=== PATIENT | female | born 1970 | race Caucasian/White ===

== ENCOUNTER 2021-03-29 16:17 | Emergency (ER) | payer OTHER, SELFPAY ==
[2021-03-29 16:32] VITALS: BP 176/79; PULSE 75; RESP 20; TEMP 37.1; O2SAT 99
--- NOTE | 2021-03-29 16:38 | ED.WOUNDLAC ---
HPI - Wound/Laceration General Chief Complaint: Wound/Laceration Stated Complaint: Wasp Sting on hand Time Seen by Provider: 03/29/21 16:38 Source: patient Mode of arrival: ambulatory Limitations: no limitations History of Present Illness HPI narrative: Jacqui Keyes is a 50 yo female with a PMH of high cholesterol who comes to [facility] with a wasp sting on the medial dorsum of left hand. It occurred couple hours ago in her hand this was tender and now is swollen. Finger 4 and 5 feels stiff and have some swelling in the proximal digits Related Data Allergies Allergy/AdvReac Type Severity Reaction Status Date / Time No Known Allergies Allergy Verified 03/29/21 16:19 Review of Systems Review of Systems: CONSTITUTIONAL: Denies fever, chills, sweats. EYES: Denies visual changes, redness, discharge. ENT: Denies rhinorrhea, congestion, sore throat, otalgia. CARDIOVASCULAR: Denies chest pain, palpitations, edema. RESPIRATORY: Denies dyspnea, wheezing, cough GASTROINTESTINAL: Denies abdominal pain, nausea, vomiting, diarrhea. GENITOURINARY: Denies dysuria, hematuria, abnormal discharge SKIN: Denies rash or itching. Lasting left dorsum of hand NEUROLOGIC: Denies numbness, or focal weakness. PSYCHIATRIC: Denies anxiety or depression. [facility] Past Medical History Medical History High cholesterol Family History Family History Other No acute medical problems Social History Social History (Updated 03/29/21 @ 16:47 by Katlyn Reynolds CNP) Smoking packs per day: 0.75 Smoking cigarettes per day: 15.0 Smoking status: Current every day smoker Alcohol intake: current Comments At time of signature, I agree with nursing past medical, surgical, social and family history. There is no relevant family history pertinent to the presenting complaint. Exam Narrative: GENERAL: This is a well-nourished, well-developed patient, in mild distress. HEAD: normocephalic, atraumatic. EYES:L. Sclera clear/white. Vision is grossly intact. EARS: External ears normal, . Hearing grossly intact. NOSE: External nose normal without nasal discharge, nares without redness, no rhinorrhea. THROAT: Mucous membranes moist, NECK: Neck supple, non-tender CARDIOVASCULAR: Regular rate and rhythm without murmurs, gallops, or rubs. RESPIRATORY: Clear to auscultation. Breath sounds equal bilaterally. No wheezes, rales, or rhonchi. GASTROINTESTINAL: Abdomen soft, non-tender, SKIN: warm, intact with mild sting to dorsum of left hand swelling medial half of the dorsum with stiffness in the fourth and fifth finger some swelling of the proximal digit not particularly tender . NEURO: awake, alert, and oriented to person, place and time. There were no obvious focal neurologic abnormalities. Steady gait EXTREMITIES: Normal range of motion. BACK: Nontender without deformity Course Course Emergency Course: Patient's stung female is ago at wasp in the left hand Started with Dosepak Benadryl and Pepcid should use ice and hydrocortisone or Benadryl gel locally Vital Signs Vital signs: Vital Signs Temperature 98.7 F 03/29/21 16:32 Pulse Rate 75 03/29/21 16:32 Respiratory Rate 20 03/29/21 16:32 Blood Pressure 176/79 H 03/29/21 16:32 Pulse Oximetry 99 03/29/21 16:32 Temperature 98.7 F 03/29/21 16:32 Pulse Rate 75 03/29/21 16:32 Respiratory Rate 20 03/29/21 16:32 Blood Pressure 176/79 H 03/29/21 16:32 Pulse Oximetry 99 03/29/21 16:32 MDM - Wound/Laceration Differential Diagnosis Differential diagnosis: Likely other (wasp sting vs insect bite vs cellulitis) Critical Care Time Critical Care Time Critical Care Time: No Discharge Plan Discharge Clinical Impression: Accidental wasp sting Patient Disposition: Home, Self-Care Condition: Stable Instructions: Insect Bite or Sting (ED) Additional
== END 2021-03-29 16:54 | disposition home or self-care (01) ==
PROVIDERS: Emergency Provider Nurse Practitioner
DX: T63.461A Toxic effect of venom of wasps, accidental (unintentional), initial encounter (principal); E78.00 Pure hypercholesterolemia, unspecified; F17.210 Nicotine dependence, cigarettes, uncomplicated
CPT/HCPCS: 99203; G0463

== ENCOUNTER 2022-01-24 18:01 | Emergency (ER) | payer OTHER, SELFPAY ==
--- NOTE | 2022-01-24 18:04 | ED.EAR ---
HPI - Ear Problem General Chief complaint: Ear Stated complaint: ear pain Time Seen by Provider: 01/24/22 18:18 Source: patient and RN notes reviewed Mode of arrival: ambulatory Limitations: no limitations History of Present Illness HPI Narrative: 51-year-old female presents with concern for bilateral ear irritation. She reports she has been using Debrox to clean out wax, however they continue to be itchy. She denies drainage. Reports she is beginning to have pain in both ears, particularly pain when she chews. Like she denies fever, bodies, chills, sweats. She denies nasal congestion, rhinorrhea, sore throat, hearing changes. MD Complaint: ear pain Related Data Allergies Allergy/AdvReac Type Severity Reaction Status Date / Time No Known Allergies Allergy Verified 01/24/22 18:06 Review of Systems Review of Systems: CONSTITUTIONAL: Denies malaise, chills, sweats, or fever. EYES: Denies visual changes, redness, or discharge. ENT: Denies rhinorrhea, congestion, sinus pain, and sore throat. Reports bilateral ear itching. CARDIOVASCULAR: Denies chest pain, palpitations, or edema. RESPIRATORY: Denies cough. Denies dyspnea. GASTROINTESTINAL: Denies abdominal pain, nausea, vomiting, diarrhea SKIN: Denies rash or itching. MUSCULOSKELETAL: Denies myalgia. NEUROLOGIC: Denies headache. All systems reviewed & are unremarkable except as noted in HPI and below PMFSH Past Medical History Medical History High cholesterol Family History Family History Other No acute medical problems Social History Social History (Updated 03/29/21 @ 16:47 by Katlyn Reynolds CNP) Smoking packs per day: 0.75 Smoking cigarettes per day: 15.0 Smoking status: Current every day smoker Alcohol intake: current Comments At time of signature, agree with nursing past medical, surgical, social and family history. There is no relevant family history pertinent to the presenting complaint Exam Narrative: GENERAL: Well-appearing, well-nourished, and in no acute distress. HEAD: Normocephalic EYES: PERRLA, conjunctivae clear ENT: Nares clear. Mucous membranes moist. TM not visible due to cerumen or discharge bilaterally; no tragal tenderness. NECK: Supple. No lymphadenopathy CHEST: Clear to auscultation, breath sounds equal. No wheezing, rhonchi, rales, or stridor. No respiratory distress, speaks in full sentences. HEART: Regular rate and rhythm. No murmur heard. SKIN: Warm, dry, no rash. NEURO: Alert and oriented x3. PSYCH: Normal mood and affect Course Course Emergency Course: Patient is aware of diagnosis, understands and agrees to treatment plan. Anticipatory guidance given. Patient agrees to follow-up as directed and is aware of reasons to seek care at the emergency department. Portions of this record may have been created with voice recognition software Level of Care: Express Care Visit Vital Signs Vital signs: Reviewed. Procedures Ear Wax Removal Both Ears: Ear Wax Removal Date: 01/24/22 Ear Wax Removal Time: 18:35 Cerumenolytic Used: other (Hydrogen peroxide and water) Results: Re-examined: cerumen removed completely TM Examination: TM(s) intact, normal appearance Ear Canal Exam: other (Ear canals excoriated bilaterally, erythematous and edematous) Patient Tolerated Procedure: no complications Complications: pain Technique: ear canal irrigated and ear canal curetted Additional Comments: Substance removed from the ear not apparently wax, it was a whitish flaky and mucousy substance Medical Decision Making MDM Narrative Medical decision making narrative: Differential diagnosis considered: Jerome virus, strep pharyngitis, allergic rhinitis, upper respiratory tract infection, sinusitis, rhinosinusitis, nasopharyngitis. viral pharyngitis, otitis media, otitis exte
[2022-01-24 18:08] VITALS: BP 155/89; PULSE 89; RESP 18; TEMP 36.2; O2SAT 99
== END 2022-01-24 18:50 | disposition home or self-care (01) ==
PROVIDERS: Emergency Provider Nurse Practitioner
DX: H60.93 Unspecified otitis externa, bilateral (principal); H92.13 Otorrhea, bilateral; E78.00 Pure hypercholesterolemia, unspecified; F17.210 Nicotine dependence, cigarettes, uncomplicated
CPT/HCPCS: 99213; G0463

== ENCOUNTER 2022-03-26 19:03 | Emergency (ER) | payer OTHER, SELFPAY ==
[2022-03-26 19:12] VITALS: BP 191/112; PULSE 113; RESP 16; TEMP 37.3; O2SAT 99
--- NOTE | 2022-03-26 19:18 | ED.SKABFB ---
HPI - Skin/Abscess/Foreign Bdy General Chief complaint: Wound/Laceration Stated complaint: insect bite Time Seen by Provider: 03/26/22 19:18 Source: patient, RN notes reviewed and old records reviewed Mode of arrival: ambulatory Limitations: no limitations History of Present Illness HPI narrative: 51-year-old female presents to the [facility] after getting stung by a wasp just prior to arrival. Swelling noted left fourth finger. Area where she was stung was PIP lateral fourth finger. No increased warmth. Patient states last time she got stung by a wasp her whole hand swelled up. Denies any trouble breathing. No hives. No facial swelling, no tongue or lip swelling Related Data Allergies Allergy/AdvReac Type Severity Reaction Status Date / Time unknown ear drop Allergy Unknown Unknown Uncoded 03/26/22 19:11 Review of Systems Review of Systems: All systems reviewed & are unremarkable except as noted in HPI and below Constitutional: Constitutional: Reports no additional constitutional complaints, Denies chills and Denies fever(s) Eyes: Eyes: Reports no additional eye complaints ENT: Reports system reviewed and no additional complaints, except as documented Cardiovascular: Cardiovascular: Reports no additional cardiovascular complaints Respiratory: Respiratory: Reports no additional respiratory complaints Gastrointestinal: Gastrointestinal: Reports no additional gastrointestinal complaints Musculoskeletal: Musculoskeletal: Reports no additional musculoskeletal complaints Integumentary/Breasts: Skin/Breast: Reports as per HPI Neurologic: Reports system reviewed and no additional complaints, except as documented Psychiatric: Psychiatric: Reports no additional psychiatric complaints Allergic/Immunologic: Allergic/Immunologic: Reports no additional allergic/immunologic complaints PMFSH Past Medical History Medical History Adenocarcinoma (~2004) Chronic headaches Crohn's colitis High cholesterol Surgical History Surgical History H/O: hysterectomy (~2004) Family History Family History Sibling Asthma Grandparent Hypertension Heart disease Other No acute medical problems Social History Social History Social History: Caffeine-soda/coffee Smoking packs per day: 0.25 Smoking cigarettes per day: 5.0 Smoking status: Current every day smoker Tobacco type: cigarettes Alcohol intake: current Alcohol use details: Beer/wine 3-4 times a year Comments At the time of my signature, I reviewed and agree with the nursing past medical, surgical, social, and family history. There is no relevant family history pertinent to the patient complaint. Exam Const: General: healthy appearing, no acute distress and alert Nutritional Appearance: well nourished Orientation/consciousness: patient oriented x3 Limitations: no limitations HENMT: Head: normal to inspection Ears: external ears normal General nose exam: Normal external nose present and Normal nares present Face and sinus: normal facial exam Mouth: Yes Normal oral and palatal mucosa present, Yes lip normal and Yes moist mucous membranes Throat: posterior oropharynx normal and uvula midline Eyes: General: appearance normal, both eyes and all related structures Pupils: Equal, round and reactive pupils present Neck: Neck: normal visual inspection, no lymphadenopathy and no meningeal signs Chest: Chest palpation & inspection: normal inspection of the chest Resp: Effort & Inspection: normal respiratory effort and no use of accessory muscles Auscultation: clear to auscultation bilaterally, no crackles, no rales, no rhonchi and no wheezes Cardio: Rate: regular rate Rhythm: regular rhythm GI: GI Palp: Yes Soft to palpation and No Ten
[2022-03-26] MEDS: predniSONE 20 MG TABLET 60 MG PO (19:33)
[2022-03-26] MEDS: FAMOTIDINE 20 MG TABLET PO (19:34)
[2022-03-26 19:40] VITALS: BP 165/100
== END 2022-03-26 19:50 | disposition home or self-care (01) ==
PROVIDERS: Emergency Provider Nurse Practitioner
DX: T63.461A Toxic effect of venom of wasps, accidental (unintentional), initial encounter (principal); F17.210 Nicotine dependence, cigarettes, uncomplicated; E78.00 Pure hypercholesterolemia, unspecified; K50.90 Crohn's disease, unspecified, without complications; Z85.9 Personal history of malignant neoplasm, unspecified
CPT/HCPCS: 99213; A9270; G0463; J7512

== ENCOUNTER 2022-09-20 08:55 | Emergency (ER) | payer OTHER, SELFPAY ==
[2022-09-20 09:03] VITALS: PULSE 98; RESP 16; TEMP 36.4; O2SAT 100
[2022-09-20 09:15] VITALS: BP 152/88
--- NOTE | 2022-09-20 09:19 | ED.NAVMDI ---
HPI - Nausea/Vomiting/Diarrhea General Chief complaint: Nausea/Vomiting/Diarrhea Stated complaint: vomiting Time Seen by Provider: 09/20/22 09:22 Source: patient and RN notes reviewed Mode of arrival: ambulatory Limitations: no limitations History of Present Illness HPI Narrative: 52-year-old female presents concern for nausea and vomiting for 4-5 days. She reports mild low back ache that she attributes to being in bed all week. She denies diarrhea, constipation, abdominal pain. Reports slight nasal congestion. Denies sore throat, headache, fever, chills, sweats. She denies urine frequency, urgency, dysuria. Denies flank pain. She reports she is drinking fluids and is able to urinate at least once every 6 hours MD elicited complaint: nausea and vomiting Related Data Home Medications Medication Instructions Recorded Confirmed multivitamin-ferrous 1 tablet PO DAILY 04/29/22 09/20/22 fumarate-folic acid 18 mg-400 mcg tablet (Centrum Complete) omega-3 fatty acids 500 mg capsule 500 mg PO DAILY 04/29/22 09/20/22 Allergies Allergy/AdvReac Type Severity Reaction Status Date / Time unknown ear drop Allergy Unknown Unknown Uncoded 08/29/22 07:58 Review of Systems Review of Systems: CONSTITUTIONAL: Denies malaise, chills, sweats, or fever. ENT: Reports rhinorrhea, congestion. Denies sinus pain, otalgia or sore throat. CARDIOVASCULAR: Denies chest pain, palpitations, or edema. RESPIRATORY: Denies cough or dyspnea. GASTROINTESTINAL: Denies abdominal pain, diarrhea. Reports GENITOURINARY: Denies dysuria or hematuria. MUSCULOSKELETAL: Denies myalgia. Reports low back pain NEUROLOGIC: Denies headache. All systems reviewed & are unremarkable except as noted in HPI and below PMFSH Past Medical History Medical History Adenocarcinoma (~2004) Chronic headaches Crohn's colitis High cholesterol Surgical History Surgical History H/O: hysterectomy (~2004) Family History Family History Sibling Asthma Grandparent Hypertension Heart disease Other No acute medical problems Social History Social History (Updated 08/29/22 @ 08:04 by Seda Moreau [facility]) Social History: Caffeine-soda/coffee Smoking packs per day: 0.25 Smoking cigarettes per day: 5.0 Smoking status: Current every day smoker Tobacco type: cigarettes Alcohol intake: current Alcohol use details: Beer/wine 3-4 times a year Substance use: never Lack of Transportation: No Lack of Food: Never True Current Housing: I Have Housing Concerned About Future Housing: No Difficulty Paying Gas/Electric Bills: No Difficulty Paying for Meds: No Currently Unemployed: No Education: Bachelor's Degree Difficulty w/ Childcare or Family Care: No Comments At time of signature, agree with nursing past medical, surgical, social and family history. There is no relevant family history pertinent to the presenting complaint Exam Narrative: GENERAL: Nontoxic-appearing and in no acute distress. HEAD: Normocephalic, atraumatic. EYES: PERRLA, conjunctivae clear, and EOMI. ENT: Nares clear, turbinates pink, no rhinorrhea or epistaxis. Mucous membranes moist. NECK: Supple. No lymphadenopathy CHEST: Speaks in full sentences. No respiratory distress. HEART: Regular rate and rhythm. ABDOMEN: Soft, flat, nondistended, nontender. No guarding, rebound tenderness, or rigidity. No pulsatile masses. Bowel sounds present in all four quadrants. No organomegaly. Negative Nelson?s sign. No periumbilical tenderness. No Supra public tenderness or distension. No CVA tenderness SKIN: Warm, dry, no rash. NEURO: Alert and oriented x3. PSYCH: Normal mood and affect Course Course Emergency Course: Discussed urinalysis results with patient. That coupled with patient's vomiting and low
== END 2022-09-20 09:57 | disposition home or self-care (01) ==
PROVIDERS: Emergency Provider Nurse Practitioner
DX: R11.2 Nausea with vomiting, unspecified (principal); M54.50 Low back pain, unspecified; F17.210 Nicotine dependence, cigarettes, uncomplicated
CPT/HCPCS: 81003; 99213; G0463

== ENCOUNTER 2024-03-09 10:44 | Outpatient (CLI) | payer OTHER, SELFPAY ==
[2024-03-09 11:54] LABS: Creatinine Urine 155.7 mg/dL
[2024-03-09 11:59] LABS: MALB Creatinine Ratio 10.7 mg/g (0-30); Microalbumin Urine Random 16.6 mg/L (0-16.7)
[2024-03-09 12:00] LABS: Alanine Aminotransferase 16 U/L (6-35); Albumin Level 4.6 g/dL (3.5-5.1); Alkaline Phosphatase 81 U/L (38-126); Anion Gap 9 mmol/L (4-12); Aspartate Amino Transferase 26 U/L (14-36); Bilirubin,Total 0.4 mg/dL (0.2-1.3); Blood Urea Nitrogen 16 mg/dL (7-17); Calcium 9.3 mg/dL (8.4-10.2); Carbon Dioxide 27 mmol/L (22-30); Chloride 105 mmol/L (98-107); Cholesterol 252 mg/dL (0-200); Estimated Glomerular Filt Rate > 60; Glucose 108 mg/dL (65-110); HDL Direct 63 mg/dL; Sodium 141 mmol/L (137-145); Triglycerides 111 mg/dL (<150)
[2024-03-09 12:11] LABS: LDL Cholesterol Direct 145 mg/dL
[2024-03-09 12:44] LABS: Hemoglobin A1C 5.7 % (<5.7)
[2024-03-09 12:59] LABS: Hepatitis C Virus Antibody Negative (Negative)
== END 2024-03-09 10:45 | disposition home or self-care (01) ==
LOC: ANHLAB 10:46
PROVIDERS: PCP Family Medicine; Visit Provider Family Medicine
DX: Z13.6 Encounter for screening for cardiovascular disorders (principal); Z13.1 Encounter for screening for diabetes mellitus; Z11.59 Encounter for screening for other viral diseases; I10 Essential (primary) hypertension
CPT/HCPCS: 36415; 80053; 80061; 82043; 83036; 86803

== ENCOUNTER 2024-05-02 13:43 | Emergency (ER) | payer OTHER, SELFPAY ==
--- NOTE | ~2024-05-02 | XR_ITS ---
XR hand RT min 3V DATE: 05/02/2024 14:12 INDICATION: Laceration of second and third digits TECHNIQUE: 4 views COMPARISON: None FINDINGS: There is soft tissue bandage binding the second and third digits distally, limiting evaluat ion of the underlying soft tissues. No radiopaque foreign body is evident. There is amputation of the distal aspect of the left of the third digit. The small distal fracture fr agment is evident. No other fracture or dislocation is detected. IMPRESSION: Distal second and third soft tissue laceration injury with amputation of a small fragment of the distal aspect of the tuft of the distal phalanx of the third digit Reviewed, dictated and finalized at location A. IMPRESSION: Distal second and third soft tissue laceration injury with amputati on of a small fragment of the distal aspect of the tuft of the distal phalanx o f the third digit
[2024-05-02 13:51] VITALS: BP 160/105; PULSE 95; RESP 15; TEMP 36.6; O2SAT 92
--- NOTE | 2024-05-02 14:17 | ED.GENADULT ---
HPI - General Adult General Chief complaint: Extremity Injury, Upper <MAURO Downey Last Filed: 05/02/24 19:34> Stated complaint: laceration <MAURO Downey Last Filed: 05/02/24 19:34> Time Seen by Provider: 05/02/24 14:01 <MAURO Downey Last Filed: 05/02/24 19:34> Source: patient <MAURO Downey Last Filed: 05/02/24 19:34> Mode of arrival: ambulatory <MAURO Downey Last Filed: 05/02/24 19:34> Limitations: no limitations <MAURO Downey Last Filed: 05/02/24 19:34> History of Present Illness HPI narrative: This is a 53-year-old female who presents to the ED for chief complaint of laceration injury to the right hand. Reports she was chopping lettuce today when she accidentally sliced the tip of the right 2nd and 3rd digit. Triage note mentions that bleeding is not controlled upon arrival. Patient states that she completely jump to the end of her fingers off. Denies any further site of injury. <MAURO Downey Last Filed: 05/02/24 19:34> Related Data Home medications: Home Medications Medication Instructions Recorded Confirmed multivitamin-ferrous 1 tablet PO DAILY 04/29/22 03/04/24 fumarate-folic acid 18 mg-400 mcg tablet (Centrum Complete) omega-3 fatty acids 500 mg capsule 500 mg PO DAILY 04/29/22 03/04/24 coQ10 (ubiquinol) 100 mg capsule 100 mg PO DAILY 03/05/23 03/04/24 <MAURO Downey Last Filed: 05/02/24 19:34> Allergies/adverse reactions: Allergies Allergy/AdvReac Type Severity Reaction Status Date / Time unknown ear drop Allergy Unknown Unknown Uncoded 04/06/24 08:32 <MAURO Downey Last Filed: 05/02/24 19:34> Review of Systems Review of Systems: All systems as dictated in HPI <MAURO Downey Last Filed: 05/02/24 19:34> [facility] Past Medical History Medical History: Medical History Adenocarcinoma (~2004) Chronic headaches Crohn's colitis High cholesterol <MAURO Downey Last Filed: 05/02/24 19:34> Surgical History Surgical History: Surgical History H/O: hysterectomy (~2004) <MAURO Downey Last Filed: 05/02/24 19:34> Family History Family History: Family History Sibling Asthma Grandparent Hypertension Heart disease Other No acute medical problems <MAURO Downey Last Filed: 05/02/24 19:34> Social History Social History: Social History Social History: Caffeine-soda/coffee Smoking packs per day: 0.25 Smoking cigarettes per day: 5.0 Smoking status: Former smoker Tobacco type: cigarettes Smoking end date: 04/06/23 Alcohol intake: current Alcohol use details: Beer/wine 3-4 times a year Substance use: never Lack of Transportation: No Lack of Food: Never True Current Housing: I Have Housing Concerned About Future Housing: No Difficulty Paying Gas/Electric Bills: No Difficulty Paying for Meds: No Currently Unemployed: No Education: Bachelor's Degree Difficulty w/ Childcare or Family Care: No <MAURO Downey Last Filed: 05/02/24 19:34> Exam Narrative: GENERAL: Well-appearing, well-nourished, and in no acute distress. HEAD: Normocephalic, atraumatic. EYES: PERRLA and EOMI. ENT: Nares clear, no rhinorrhea or epistaxis. Mucous membranes moist. Oropharynx without tonsillar hypertrophy exudate or other lesions. NECK: Supple. No adenopathy or masses. CHEST: No respiratory distress. Clear to auscultation. No wheezes rales or rhonchi HEART: Regular rate and rhythm. No murmur heard. Normal peripheral pulses. ABDOMEN: Soft, nontender, nondistended, normal active bowel sounds. MSK: Normal range of motion. No edema. SKIN: Complete avulsions to the distal tips of the 2nd and 3rd digits. There is an active bleeding vessel to the distal right index finger. Bleeding is slowed in the distal middle finger. NEURO: Alert and oriented x4. No focal deficits. PSYCH: Normal mood and affect. <Raudel Joseph PA-C - Last Filed: 05/02/24 19:34> Course Course Emergency Course: Discussed the plan of transfer with patient and she is understanding of the need and is agreeable for this transfer. She would like to go private vehicle possible. She verbalizes understanding of the risk of not having this finger evaluated further by Plastic surgery today and ensures that she and family will go straight to [facility] <Raudel Joseph PA-C - Last Filed: 05/02/24 19:34> FIELD MAP TECHNICIAN/PA Physician Supervision This visit was performed by both a physician and an APC. I performed all aspects of the MDM as documented. <Rian Vasquez MD - Last Filed: 05/02/24 18:35> Consultations Consultation #1: Spoke with Dr. Bashir (Plastics/Hand) [facility]. He does recommend to transfer the patient emergently to address the right middle finger distal tuft amputation. <Raudel Joseph PA-C - Last Filed: 05/02/24 19:34> Consultation #2: Was able speak with Dr. Peng ([facility]) who does accept the patient for transfer. <MAURO Downey Last Filed: 05/02/24 19:34> Vital Signs Vital signs: Vital Signs Temperature 98 F 05/02/24 13:51 Pulse Rate 95 05/02/24 13:51 Respiratory Rate 15 05/02/24 13:51 Blood Pressure 160/105 H 05/02/24 13:51 Pulse Oximetry 92 05/02/24 13:51 Oxygen Delivery Room Air 05/02/24 13:51 Temperature 98 F 05/02/24 13:51 Pulse Rate 75 05/02/24 15:53 Respiratory Rate 19 05/02/24 15:53 Blood Pressure 159/93 H 05/02/24 15:53 Pulse Oximetry 97 10/27/24 15:53 Oxygen Delivery Room Air 05/02/24 13:51 <Raudel Joseph PA-C - Last Filed: 05/02/24 19:34> Vital Signs Temperature 98 F 05/02/24 13:51 Pulse Rate 95 05/02/24 13:51 Respiratory Rate 15 05/02/24 13:51 Blood Pressure 160/105 H 05/02/24 13:51 Pulse Oximetry 92 05/02/24 13:51 Oxygen Delivery Room Air 05/02/24 13:51 Temperature 98 F 05/02/24 13:51 Pulse Rate 75 05/02/24 15:53 Respiratory Rate 19 05/02/24 15:53 Blood Pressure 159/93 H 05/02/24 15:53 Pulse Oximetry 97 05/02/24 15:53 Oxygen Delivery Room Air 05/02/24 13:51 <Rian Vasquez MD - Last Filed: 05/02/24 18:35> Procedures Laceration Laceration 1: Date: 05/02/24 <Raudel Joseph PA-C - Last Filed: 05/02/24 19:34> Time: 15:01 <Raudel Joseph PA-C - Last Filed: 05/02/24 19:34> Site: hand (distal tip avulsion with active bleed to R index) <Raudel Joseph PA-C - Last Filed: 05/02/24 19:34> Side (If applicable): right <Raudel Joseph PA-C - Last Filed: 05/02/24 19:34> Description: irregular <Raudel Joseph PA-C - Last Filed: 05/02/24 19:34> Depth: simple, single layer <Raudel Joseph PA-C - Last Filed: 05/02/24 19:34> Local Anesthetic: lidocaine 1% (digital block) <Raudel Joseph PA-C - Last Filed: 05/02/24 19:34> Amount of anesthesia used (mL): 2 (digital block) <Raudel Joseph PA-C - Last Filed: 05/02/24 19:34> Pre-repair: irrigated <Raudel Joseph PA-C Last Filed: 05/02/24 19:34> ====== Skin Level ======: Skin layer closed with: other (chromic gut) <Raudel Joseph PA-C Last Filed: 05/02/24 19:34> Size (cm): 5-0 <Raudel Joseph PA-C - Last Filed: 05/02/24 19:34> Number of sutures: 3 <MAURO Downey Last Filed: 05/02/24 19:34> Technique: simple, interrupted <Raudel Joseph PA-C Last Filed: 05/02/24 19:34> ====== Subcutaneous Layer ======: ====== Muscle Layer ======: ====== Tendon Layer ======: Medical Decision Making MDM Narrative Medical decision making narrative: This is a 53 yo female who presents to the ED for chief complaint of right hand injury occurring just prior to arrival. She accidentally jumped the distal tips right middle and index finger. Vitals show elevated blood pressure but otherwise normal. Exam shows Complete avulsions to the distal tips of the 2nd and 3rd digits. There is an active bleeding vessel to the distal right index finger. Bleeding is slowed in the distal middle finger. R hand XR: IMPRESSION: Distal second and third soft tissue laceration injury with amputation of a small fragment of the distal aspect of the tuft of the distal phalanx of the third digit Able to control the bleeding of the index finger with absorbable sutures. The middle finger bleeding resolved on its own. Dressed the wounds with Surgicel dressing and non adherent past with Kerlix. Discussed the case with Plastic/Hand over at [facility] who felt that the patient needed to be evaluated there today due to the exposed bony amputation of the middle finger tuft. Discussed with [facility] ED who are willing to accept the patient. She will be able to go by private vehicle as was her request. She was given pain medications, Ancef prior to leaving the ED. Her family is with her and will transport her. Transfer in stable condition. <MAURO Downey Last Filed: 05/02/24 19:34> Vital Signs Vital Signs: Vital Signs Temperature 98 F 05/02/24 13:51 Pulse Rate 95 05/02/24 13:51 Respiratory Rate 15 05/02/24 13:51 Blood Pressure 160/105 H 05/02/24 13:51 Pulse Oximetry 92 05/02/24 13:51 Oxygen Delivery Room Air 05/02/24 13:51 Temperature 98 F 05/02/24 13:51 Pulse Rate 75 05/02/24 15:53 Respiratory Rate 19 05/02/24 15:53 Blood Pressure 159/93 H 05/02/24 15:53 Pulse Oximetry 97 05/02/24 15:53 Oxygen Delivery Room Air 05/02/24 13:51 <Raudel Joseph PA-C - Last Filed: 05/02/24 19:34> Vital Signs Temperature 98 F 05/02/24 13:51 Pulse Rate 95 05/02/24 13:51 Respiratory Rate 15 05/02/24 13:51 Blood Pressure 160/105 H 05/02/24 13:51 Pulse Oximetry 92 05/02/24 13:51 Oxygen Delivery Room Air 05/02/24 13:51 Temperature 98 F 05/02/24 13:51 Pulse Rate 75 05/02/24 15:53 Respiratory Rate 19 05/02/24 15:53 Blood Pressure 159/93 H 05/02/24 15:53 Pulse Oximetry 97 05/02/24 15:53 Oxygen Delivery Room Air 05/02/24 13:51 <Rian Vasquez MD - Last Filed: 05/02/24 18:35> Discharge Plan Discharge Clinical Impression: Avulsion of finger Amputation finger Qualifiers: Encounter type: initial encounter Qualified Code(s): S68.119A - Complete traumatic metacarpophalangeal amputation of unspecified finger, initial encounter <Raudel Joseph PA-C - Last Filed: 05/02/24 19:34> Patient Disposition: Acute Care Hospital <MAURO Downey Last Filed: 05/02/24 19:34> Condition: Stable <MAURO Downey Last Filed: 05/02/24 19:34> Instructions: Antibiotic Form <MAURO Downey Last Filed: 05/02/24 19:34> Prescriptions: No Action Centrum Complete 18-400 mg-mcg tablet 1 tablet PO DAILY omega-3 fatty acids 500 mg capsule 500 mg PO DAILY lisinopril 10 mg tablet 10 mg PO DAILY Qty: 30 2RF coQ10 (ubiquinol) 100 mg capsule 100 mg PO DAILY <Raudel Joseph PA-C - Last Filed: 05/02/24 19:34> Follow-up/Referrals: Apollo Nunn, [Primary Care Provider] - <Raudel Joseph PA-C - Last Filed: 05/02/24 19:34>
[2024-05-02] MEDS: ONDANSETRON INJ 4 MG/2 ML VIAL IV PUSH (15:19)
[2024-05-02] MEDS: MORPHINE SULFATE (*CRX) 4 MG/ML INJ IV PUSH (15:20)
[2024-05-02] MEDS: ceFAZolin 1 GM/NS 50 ML 1 GM/50 ML BAG IVPB (15:20)
[2024-05-02 15:31] VITALS: BP 140/91; PULSE 83; RESP 18; O2SAT 95
[2024-05-02 15:53] VITALS: BP 159/93; PULSE 75; RESP 19; O2SAT 97
--- NOTE | 2024-05-02 16:04 | PC.NURSE ---
Pt is being transfer to [facility], offered ambulance. Pt refused ambulance said will go by private vehicle.
== END 2024-05-02 16:30 | disposition short-term general hospital (02) ==
PROVIDERS: Emergency Provider Physician Assistant; PCP Family Medicine
DX: S68.110A Complete traumatic metacarpophalangeal amputation of right index finger, initial encounter (principal); S68.112A Complete traumatic metacarpophalangeal amputation of right middle finger, initial encounter; W26.9XXA Contact with unspecified sharp object(s), initial encounter
CPT/HCPCS: 12001; 73130; 96365; 96375; 99284; J0690; J2270; J2405